=== PATIENT | male | born 1965 | race Caucasian/White ===

== ENCOUNTER 2016-10-16 17:52 | Emergency (ER) | payer MEDICARE, OTHER ==
--- OUTSIDE RECORDS SUMMARY | 2016-10-16 18:22 | XMS REPORT | Continuity of Care Document ---
:1965 Author Organization [facility] ([facility]) [place] [address] Phone [phone] Care Team Providers Name Role Phone Jena Stewart-Physicians & Primary Care Provider [phone] Source Comments This disclosure is being made pursuant to the Care Everywhere program, applicable federal and state laws, and may not contain all informaitonavailable regarding this patient.[facility] ([facility]) Active Allergies and Adverse Reactions Allergen Noted Date Severity Reactions Comments Dust 06/19/2016 Pruritus Fish Containing Products 06/19/2016 Upper Airway Edema,Angioedema Milk 06/19/2016 Gastrointestinal bleed Onion 06/19/2016 Upper Airway Edema Peanut 06/19/2016 Asthma,Urticaria (Hives) Trees 06/19/2016 Urticaria (Hives),Pruritus Current Medications Prescription Sig. Disp. Refills Start End Date Status Date traMADol 50 mg Take 50 mg by Active tablet mouth 4 times daily as needed. hydrOXYzine pamoate Take 25 mg by Active 25 mg capsule mouth every 8 hours as needed. Indications: PRURITUS OF SKIN methocarbamol 750 mg Take 750 mg by Active tablet mouth 3 times daily. ranitidine 150 mg Take 150 mg by Active tablet mouth 2 times daily. albuterol 90 Use 2 Puffs by Active mcg/Actuation inhalation every inhaler 4 hours as needed. lisinopril 40 mg Take 40 mg by Active tablet mouth daily. lovaSTATIN 40 mg Take 40 mg by Active tablet mouth every evening. fluticasone-salmeter Use 1 Puff by Active ol (ADVAIR 500-50) inhalation every inhaler 12 hours. montelukast 10 mg Take 10 mg by Active tablet mouth every evening. traZODone 100 mg Take 100 mg by Active tablet mouth at bedtime. ibuprofen 800 mg Take 800 mg by Active tablet mouth every 8 hours as needed. cyclobenzaprine 10 Take 10 mg by Active mg tablet mouth 3 times daily as needed. metoPROLol succinate Take 50 mg by Active 50 mg XL tablet mouth daily. PARoxetine 20 mg Take 20 mg by Active tablet mouth daily. allopurinol 300 mg Take 1 Tab by 30 Tab 2 Active tablet mouth daily. 3 Indications: GOUTY ARTHRITIS colchicine 0.6 mg Take 1 Tab by 30 Tab 2 Active tablet mouth daily. 3 Indications: GOUT docusate 100 mg Take 1 Cap by 60 Cap 1 Active capsule mouth 2 times 3 daily. Indications: CONSTIPATION ondansetron 4 mg Take 1 Tab by 20 Tab 0 Active tablet mouth every 6 3 hours as needed. Indications: nausea HYDROmorphone 2 mg Take 0.5 Tabs by 40 Tab 0 Active tablet mouth every 4 3 hours as needed. Indications: PAIN HYDROcodone-acetamin Take 1 Tab by 30 Tab 0 Active ophen 5-325 mg per mouth every 4 5 tablet hours as needed for Pain DO NOT EXCEED 3,000 MG ACETAMINOPHEN PER DAY FROM ALL SOURCES ibuprofen 800 mg Take 1 Tab (800 20 Tab 0 Active tablet mg total) by 5 mouth every 6 hours as needed for Pain DO NOT EXCEED 3,200 MG IBUPROFEN PER DAY FROM ALL SOURCES glimepiride PO Active [id number] 4 times daily. 7 g 3 Active examethasone 6 ophthalmic ointment desonide 0.05 % Apply twice daily 30 g 4 Active ointment to rash on face. 6 triamcinolone 0.1 % Apply topically 2 454 g 5 Active cream times daily. 6 Apply BID to red, itchy rash. mycophenolate Take 2 tablets 120 tablet 0 Active mofetil 500 mg (1,000 mg total) 7 tablet by mouth 2 times daily. Take with food. mycophenolate Take 2 tablets 120 tablet 1 09/25/19 Discontinued mofetil 500 mg (1,000 mg total) 6 17 tablet by mouth 2 times daily. Take with food. Active Problems Problem Noted Date Gout attack 03/12/2013 Hypernatremia 03/06/2013 Hypokalemia 03/06/2013 LISA (acute kidney injury) 03/06/2013 Respiratory insufficiency following shock, trauma, or surgery 03/05/2013 Right acetabular fracture 03/02/2013 Bilateral pubic rami fractures 03/02/2013 Rib fracture 03/02/2013 Head injury, unspecified 11/14/2008 Most Recent Encounters Date Type Specialty Providers Description 09/25/2016 Refill Dermatology Nessa Blake MD Dx: Intrinsic atopic dermatitis (Primary Dx) 08/14/2016 Office Visit Dermatology Nessa Blake MD Chief Comp: Patient Reported Reason For Visit 07/24/2016 Telephone Dermatology Nessa Blake MD Chief Comp: Orders ( to arrange test locally) 07/19/2016 Telephone Neurology Blaise Mancia MD Chief Comp: Consultation Immunizations Name Dates Previously Given Next Due Pneumococcal Polysaccharide, PPSV23 (Pneumovax 23) 10/20/2013 Tdap 02/25/2013 Social History Tobacco Use Types Packs/Day Years Used Date Never Smoker Alcohol Use Drinks/Week oz/Week Comments Yes 4 Standard drinks or equivalent 5.0 Last Filed Vital Signs Vital Sign Reading Time Taken Blood Pressure 138/83 03/08/2015 2:56 PM CDT Pulse 79 03/08/2015 12:54 PM CDT Temperature 36.2 C (97.2 F) 03/08/2015 12:54 PM CDT Respiratory Rate 8 03/08/2015 12:54 PM CDT Height 1.676 m (5' 5.98") 03/08/2015 12:54 PM CDT Weight 108.863 kg (240 lb) 03/08/2015 12:54 PM CDT Body Mass Index 38.76 03/08/2015 12:54 PM CDT Oxygen Saturation 99% 03/08/2015 2:56 PM CDT Plan of Care Health Maintenance Due Date Last Done Comments HCV Screening 1965 Hepatitis B Vaccine (1 of 3 - Primary Series) 1965 Lipid Disorder Screening 1981 MMR Vaccine 1981 Colonoscopy 04/13/2013 Prostate Cancer Screening 2013 Influenza Vaccine: Seasonal (#1) 04/09/2016 Td Vaccine 02/25/2023 02/25/2013 Tdap Vaccine Completed 02/25/2013 Results from Last 3 Months Not on file
[2016-10-16 18:32] LABS: Hemoglobin 17.1 gm/dL (13.5-18.0); Mean Cell Volume 89.6 fl (78-100); Mean Corpuscular Hemoglobin 30.6 pg (27-31); Mean Corpuscular Hgb Conc 34.2 g/dl (32-36); Neutrophil # 9.1 K/mm3 (1.3-6.0); Neutrophil % 63.6 % (42-75.0); Platelet Count 263 K/mm3 (150-450); Red Blood Count 5.58 M/mm3 (4.7-6.0); Red Cell Distribution Width 12.5 % (11.5-14.0); White Blood Count 14.3 K/mm3 (4.0-10.5)
--- NOTE | 2016-10-16 18:40 | ERNOTE ---
Integumentary HPI - Narrative Date of Service: 10/16/16 - General Presenting Symptoms: other - swelling on face Time Seen by Provider: 10/16/16 18:05 Source: patient Exam Limitations: no limitations - Immun/Allergies/Home Medications Immunizations: IMMUNIZATION HX Immunizations Up to Date Yes History of Influenza Vaccine No Hx Pneumococcal Vaccination No Allergies/Adverse Reactions: Allergies Allergy/AdvReac Type Severity Reaction Status Date / Time Fish Containing Products Allergy Severe Anaphylaxis Verified 10/16/16 18:00 onion [Onion] Allergy Unknown Verified 10/16/16 18:00 egg AdvReac Mild TOO MANY Verified 10/16/16 18:00 CAUSES STOMACH ISSUES nuts Allergy Severe Anaphylaxis Uncoded 10/16/16 18:00 Home Medications: HOME MEDICATIONS Aspirin 325 mg PO DAILY #30 tab 09/01/14 [Last Taken Unknown] Glipizide 10 mg PO BID 05/16/15 [Last Taken Unknown] Nabumetone 1,500 mg PO DAILY 05/16/15 [Last Taken Unknown] Lisinopril [Zestril] 40 mg PO DAILY 05/18/15 [Last Taken Unknown] Montelukast Sodium [Singulair] 10 mg PO HS #30 tablet 05/24/15 [Last Taken Unknown] Albuterol Sulfate [Proventil Hfa] 2 puff IH Q4H PRN 09/13/15 [Last Taken Unknown ] Colchicine/Probenecid [Probenecid-Colchicine Tabs] 2 each PO BID 09/13/15 [Last Taken Unknown] B12/Levomefolate Calcium/B-6 [Folbic Rf Tablet] 1 each PO 07/19/16 [Last Taken Unknown] Diclofenac Potassium [Cambia] 50 mg PO QID 07/19/16 [Last Taken Unknown] Ezetimibe [Zetia] 10 mg PO 07/19/16 [Last Taken Unknown] Gabapentin 800 mg PO QID 07/19/16 [Last Taken Unknown] Lovastatin 40 mg PO 07/19/16 [Last Taken Unknown] Meclizine HCl [Antivert] 12.5 mg PO 07/19/16 [Last Taken Unknown] Metformin HCl [Metformin HCl ER] 500 mg PO BID 07/19/16 [Last Taken Unknown] Mycophenolate Mofetil [Cellcept] 500 mg PO QID 07/19/16 [Last Taken Unknown] Propranolol HCl [Inderal Xl] 120 mg PO 07/19/16 [Last Taken Unknown] Sulindac 200 mg PO 07/19/16 [Last Taken Unknown] Vitamin D3/Vitamin K2 [D3 + K2 Dots 1,000 Units Tab] 1 each PO 07/19/16 [Last Taken Unknown] Clindamycin HCl [Cleocin HCl] 300 mg PO QID #40 capsule 10/16/16 [Last Taken Unknown] - History of Present Illness Narrative: Patient presents for a swollen area on his face. He relates he has had this off and on for several months. He relates normally he gets put on antibiotics ( clindamycin) and it will go away. he has had this approx 3 times. Has never had it incised. This now has been goiung on for 6 days. Exact same spot as prior. He went to the walk in clinic but was concerned as he normally gets a shot of antibiotics and he was put on an antibiotic he has never been on before. He wishes to have a shot of antibiotics and be placed on a different antibiotic. He relates there is nothing different about this than what he has had before. No fever. no trouble breathing or swallowing. No acute vision changes. Has never had anyone aspirate it. He relates it always goes away with BAx but seems to come right back. Location: Reports: other - left side of face Quality: Reports: painful Severity: other - same as before Exposure: Reports: other - Hx MRSA Modifying Factors - (Worsens): Reports: nothing Associated Symptoms: Denies: fever Review of Systems - Review of Systems Constitutional: Absent: fever EYE: Absent: eye discharge ENT: Absent: throat swelling Respiratory: Absent: shortness of breath - Patient's Past Medical History Patient History - Medical: Diabetes Type 2, Headache, Other Patient History - Cardiac/Respiratory: No pertinent hx Patient History - Cancer: No Hx of Cancer Patient History - Surgical Procedures: Other Patient History - Other: None - Family History Brother Family History - Cardiac/Respiratory: Other Father Family History - Cardiac/Respiratory: Asthma Grandmother-Maternal Family History - Medical: Dementia Family History - Cardiac/Respiratory: Asthma, Coronary Heart Disease, Hypertension Mother Family History - Medical: Other Family History - Cardiac/Respiratory: Angina, Asthma, Hypertension, Hyperlipidemia, Myocardial Infarction, Other - Social History Living Situations: home Psych History: No pertinent hx Alcohol Use: occasionally Drug Use: none - Immunizations Immunizations Up to Date: Yes Hx Pneumococcal Vaccination: No History of Influenza Vaccine: No Physical Exam - Physical Exam General Appearance: Present: alert, no apparent distress, other - non-toxic, sitting in the chair, no distress. Eye Exam: Normal inspection: bilateral, PERRL: bilateral, EOMI: bilateral Ears, Nose, Throat: Present: other - No intra-oral swelling, no abscess, no mandeep's angina. There is a 1.5 cm superficial swelling which is firm and not fluctuant left lateral face anterior to left ear. Nothing clinically to drain here. No ear involvement. No eye involvement. Neck: Present: normal inspection, other - possible small lymphnode left. No abscess or other masses. 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 No clear abscess to drain. ED Progress - Results and Orders Patient's Lab Results:: I have reviewed the patient's lab results. - Vital Signs Patient's Vital Signs:: I have reviewed the patient's vital signs. Vital Signs: Vital Signs 10/16/16 17:56 Temperature 36.4 C L Pulse Rate 63 Respiratory 16 Rate Blood Pressure 172/100 O2 Sat by Pulse 93 Oximetry - Progress/Reassessment Chief Complaint: Abscess Progress Note-Subjective: 10/16/16 18:51 I discussed options with the patient. He states that in the past this has been twice as big. Clinically there is no abscess to drain. I offered probing with 18G needle but he declines this and wishes antibiotics first. he understands risks and benefits of this. Since this has always gone away with ABx and never needed to be drained he wishes to try this approach first. he understands risks and benefits. I discussed warning signs and reasons to return as well as the need for close f/u. Stable, non-toxic, no sepsis, no distress. 10/16/16 18:54 Departure Clinical Impression: Skin infection - Departure Disposition: Home self-care Condition: Stable Instructions: Cellulitis, Adult, [id number] Additional Instructions: Take antibiotic as directed. Follow-up with your doctor within 2-3 days for a re-check. Return for fever, increased swelling or if your condition worsens or changes in any way. Referrals: Cristiano Viera MD [Primary Care Provider] - Prescriptions: Clindamycin HCl [Cleocin HCl] 300 mg PO QID #40 capsule
[2016-10-16] MEDS ORDERED: CLINDAMYCIN PHOSPHATE 600 MG in DEXTROSE 5 % IN WATER 100 ML IM SCH ×2 (19:00)
[2016-10-16] MEDS ORDERED: CLINDAMYCIN PHOSPHATE 150 MG/ML VIAL IM SCH (19:15)
[2016-10-16 21:22] VITALS: BP 151/91
== END 2016-10-16 20:00 | disposition home or self-care (01) ==
LOC: ER 17:52
DX: L08.9 Local infection of the skin and subcutaneous tissue, unspecified (principal)